=== PATIENT | male | born 1935 | race Caucasian/White ===

== ENCOUNTER 2020-02-28 17:18 | Emergency (ER) | payer MEDICARE, SELFPAY ==
[2020-02-28 17:27] VITALS: BP 147/87; PULSE 101; RESP 18; TEMP 36.2; O2SAT 96; BMI 20.7
[2020-02-28 17:33] VITALS: BP 121/73; PULSE 103; RESP 18; O2SAT 94
--- NOTE | 2020-02-28 17:52 | CTR_ITS ---
PROCEDURE INFORMATION: Exam: CT Abdomen And Pelvis With Contrast Exam date and time: 02/28/2020 6:14 PM Age: 84 years old Clinical indication: Abdominal pain; Localized; Prior surgery; Surgery date: 6+ months; Surgery type: Hip; Patient HX: C/O lower abd pain and constipation; Additional info: Constipation, abdominal pain. TECHNIQUE: Imaging protocol: Computed tomography of the abdomen and pelvis with intravenous contrast. Radiation optimization: All CT scans at this facility use at least one of these dose optimization techniques: automated exposure control; mA and/or kV adjustment per patient size (includes targeted exams where dose is matched to clinical indication); or iterative reconstruction. Contrast material: OMNI 300; Contrast volume: 95 ml; Contrast route: INTRAVENOUS (IV); COMPARISON: CR Hip 2-3v LEFT wwo Pelv* [id number] 01/27/2016 7:31 PM RADIATION DOSE METRICS: Total DLP (mGy-cm): 432.35 FINDINGS: There is some atelectasis within the lung bases. There are degenerative changes of the spine. Patient is status post left hip replacement causing streak artifact within the pelvis. There is no liver mass. There is no intrahepatic biliary dilatation. No gallstones are seen within the gallbladder. The pancreas is unremarkable. The spleen is unremarkable. There is no adrenal mass. There are several small cysts in the upper pole of the left kidney. The largest measuring 11 mm. No renal calculi or hydronephrosis is seen. The aorta is normal in caliber. The IVC is normal in caliber. There is no retroperitoneal adenopathy. There is no mesenteric adenopathy. The stomach is unremarkable. The small bowel loops in the upper abdomen are nondistended with no bowel wall thickening. The colonic structures within the upper abdomen are normal in caliber with no bowel wall thickening. There is a complex cystic area within the mesentery in the right lower quadrant. This does not appear to represent fluid-filled bowel loops. It could represent complex neoplasm. An inflammatory process is not excluded. The. Comparison to old studies would be helpful. Within the pelvis: The appendix is not visualized to advantage. However, there is no CT evidence for acute appendicitis. The bladder is nondistended. There is prostatic enlargement. There is no free fluid within the pelvis. There is no inguinal adenopathy. There is no pelvic adenopathy. The rectosigmoid colon is unremarkable. CT/CT abdomen pelvis w con* [id number] IMPRESSION: 1. Complex cystic area measuring approximately 6.1 cm the within the mesentery in the right lower quadrant. This could represent neoplasm. It could be inflammatory or infectious. Comparison to old studies would be helpful. A study with oral contrast may be helpful. The direct inspection may be warranted. 2. No pathologic adenopathy is seen. COMMENTS: Consistent with the [employer]'s Incidental Findings Committee white paper (J Am Alberto Radiol 2018): Any incidental renal lesion less than 1 cm or classified as too small to characterize, or any incidental cystic renal lesion characterized as simple-appearing, is likely benign. No follow-up imaging is recommended for these lesions per consensus recommendations based on imaging criteria. Radiation Dose CTDIVOL = (mGy): DLP = 432.35 (mGy-cm)
[2020-02-28 18:05] VITALS: BP 121/73; PULSE 100; RESP 16; O2SAT 94
[2020-02-28 18:15] LABS: Basophils % 0.3 %; Eosinophils % 0.1 %; Hematocrit 38.2 % (42.0-52.0); Hemoglobin 12.7 g/dL (11.7-16.6); Lymphocytes # 0.8 10^3/uL (0.8-4.8); Lymphocytes % 5.3 %; Mean Corpuscular HGB Conc 33.2 g/dL (30.0-36.0); Mean Corpuscular Hemoglobin 30.9 pg (28.0-34.0); Mean Corpuscular Volume 92.9 fL (80-94); Mean Platelet Volume 9.5 fL (7.4-10.4); Monocytes # 1.4 10^3/uL (0.2-0.9); Monocytes % 9.6 %; Neutrophils # 12.17 10^3/uL (1.8-7.7); Neutrophils % 84.4 %; Nucleated Red Blood Cells % 0 %; Platelet Count 543 10^3/cmm (130-400); Red Blood Count 4.11 10^6/uL (4.1-5.3); Red Cell Distribution Width 12.4 % (12.1-15.1); White Blood Count 14.4 10^3/uL (4.0-10.0)
--- NOTE | 2020-02-28 18:22 | W.ED.ABDPA2 ---
HPI - Abdominal Pain General: Chief Complaint: Abdominal Pain Stated Complaint: CONSTIPATION Time Seen by Provider: 02/28/20 17:38 Source: patient and family () Mode of arrival: ambulatory Limitations: no limitations History of Present Illness: HPI narrative: The patient is an 84-year-old male with no significant past medical history who presents to the emergency department with constipation of over 2 weeks duration. He also has some lower abdominal pain. Nausea or vomiting. No fever. He may have lost some weight. His convinced him to come to the emergency department for evaluation. MD elicited complaint: abdominal pain Onset (ago): week(s) (2) Pain Consistency: constant Location: Diffuse Severity: moderate Quality: cramping Radiation: none Migration to: no migration Exacerbating factors: nothing Relieving factors: nothing Associated Symptoms: Reports anorexia, change in bowel habits, change in stool character and constipation; Denies belching, bloating, chills, coffee ground emesis, GI cramping, diarrhea, dyspepsia, dysuria, excessive flatus, fever(s), heartburn, hematochezia, hematuria, hematemesis, fecal incontinence, loose stools, melena, nausea, poor appetite, syncope and vomiting Review of Systems General: Reports: 10 or more systems reviewed and unremarkable except in HPI and below Const: Denies: fever(s) or chills Eyes: Denies: change in vision or blurry vision ENMT: Denies: throat pain, enlarged tonsils, odynophagia, hoarseness, mouth pain or swelling of lips/tongue Card: Denies: syncope Resp: Denies: dyspnea, productive cough or non-productive cough GI: Reports: constipation, change in bowel habits and change in stool character; Denies: nausea, vomiting, hematemesis, coffee ground emesis, heartburn, diarrhea, bloating, GI cramping, belching, excessive flatus, fecal incontinence, hematochezia or melena : Denies: dysuria or hematuria Musc: Denies: neck pain, back pain or extremity swelling Skin/Breast: Denies: rash, pruritus or erythema Neuro: Denies: headache(s), numbness in extremities or weakness in extremities Endo: Denies: polyuria, polydipsia or tired all the time Physical Exam Const: COMMON NORMALS: no acute distress, average body habitus, patient oriented x3, no limitations, healthy appearing, alert and well nourished Neck/C-Spine: COMMON NORMALS: no meningeal signs and no JVD Resp: COMMON NORMALS: normal respiratory effort, No retractions, No use of accessory muscles, clear to auscultation bilaterally and percussion normal AUSCULTATION: clear to auscultation bilaterally PERCUSSION: percussion normal Cardio: COMMON NORMALS: no JVD, regular rate, regular rhythm, S1 normal heart sound present, S2 normal heart sound present, No gallops present (Cardio), No clicks present (Cardio), No murmurs present (Cardio), No rub (Cardio) and Peripheral pulses 2+ throughout RATE: regular rate RHYTHM: regular rhythm HEART SOUNDS: S1 normal heart sound present and S2 normal heart sound present PERIPHERAL PULSES: Peripheral pulses 2+ throughout GI: COMMON NORMALS: Normal to inspection, nondistended, normoactive bowel sounds present, Soft to palpation, No hepatosplenomegaly present, no masses and no bruits PALPATION: Yes Soft to palpation, Yes Tenderness to palpation present (GI) Details: RLQ and other (suprapubic), No Guarding due to palpation present (GI), No Rigid due to palpation and Yes No hepatosplenomegaly present Extremity: COMMON NORMALS: normal to inspection, full ROM, capillary refill normal, no calf tenderness and no pedal edema Neuro: COMMON NORMALS: patient oriented x3 SENSORIUM/ORIENTATION: Yes alert MENINGEAL SIGNS: Yes no meningeal signs Skin: COMMON NORMALS: no rashes or lesions noted, no wounds, turgor normal, no jaundice, no petechiae and no mottling GENERAL SKIN EXAM: no rashes or lesions noted and turgor normal Course Reevaluation(s): Reevaluation #1: Discussed his lab and imaging findings with him. Discussed that he has a right lower quadrant mesenteric mass. I explained that the differential diagnoses include an inflammatory or infectious mass versus a malignant mass. I am concerned that this may be more malignant since symptoms have been going on for several weeks. However because of his inflammatory markers being high I will send him home with a prescription for antibiotics. He will need to be seen by surgeon for possible biopsy and further evaluation. That was the patient's preference as he did not want to be admitted to the hospital. He is in no acute distress, vital signs are all normal. I do not see any reason for hospital admission today. He voiced understanding and is in agreement with the plan Time: 20:07 Vital Signs: Vital signs: Vital Signs Temperature 97.9 F 02/28/20 21:02 Pulse Rate 93 02/28/20 21:02 Respiratory Rate 16 02/28/20 21:02 Blood Pressure 123/74 02/28/20 21:02 Pulse Oximetry 95 02/28/20 21:02 MDM - Abdominal Pain MDM Narrative: Medical decision making narrative: 84-year-old gentleman who came in with lower abdominal pain and constipation. Evaluation in the emergency department including imaging of his abdomen and pelvis by CT scan does not reveal any significant obstruction or constipation, however I reveals a right lower quadrant mass in the mesentery. I suspect this mass is likely malignant. The patient is stable and has normal vital signs and is discharged home to follow-up with his surgeon for further evaluation and management including a biopsy of the mass. Medical Records: Attestation: I reviewed the patient's medical records. Lab Data: Attestation: I reviewed the patient's lab results. Labs: Lab Results 02/28/20 02/28/20 02/28/20 Range/Units 18:00 18:00 18:12 WBC 14.4 H (4.0-10.0) 10^3/ uL RBC 4.11 (4.1-5.3) 10^6/u L Hgb 12.7 (11.7-16.6) g/dL Hct 38.2 L (42.0-52.0) % MCV 92.9 (80-94) fL MCH 30.9 (28.0-34.0) pg MCHC 33.2 (30.0-36.0) g/dL RDW 12.4 (12.1-15.1) % Plt Count 543 H (130-400) 10^3/c mm MPV 9.5 (7.4-10.4) fL Neut % (Auto) 84.4 % Lymph % (Auto) 5.3 % [place] % (Auto) 9.6 % Eos % (Auto) 0.1 % Baso % (Auto) 0.3 % Neut # (Auto) 12.17 H (1.8-7.7) 10^3/u L Lymph # (Auto) 0.8 (0.8-4.8) 10^3/u L [place] # (Auto) 1.4 H (0.2-0.9) 10^3/u L Eos # (Auto) 0.0 (0.0-0.8) 10^3/u L Baso # (Auto) 0.0 (0.0-0.1) 10^3/u L Nucleated RBC % (a uto) 0 % Nucleated RBCs # 0.0 /100WBC Sodium 134 L (136-145) mmol/L Potassium 4.1 (3.5-5.1) mmol/L Chloride 97 L (98-107) mmol/L Carbon Dioxide 24 (22-29) mmol/L Anion Gap 17.1 (5-19) BUN 13 (8-23) mg/dL Creatinine 0.8 (0.7-1.2) mg/dL GFR Calculation Not Reportable Glucose 132 H (65-115) mg/dL Calculated Osmolal ity 280 L (285-295) mOsm/k g Calcium 8.9 (8.5-10.5) mg/dL Magnesium 1.9 (1.7-2.3) mg/dL Total Bilirubin 0.4 (0.15-1.2) mg/dL AST 25 (0-40) U/L ALT 14 (0-41) U/L Alkaline Phosphata se 93 (40-130) IU/L C-Reactive Protein 186.9 H (0.0-4.9) mg/L Total Protein 7.8 (6.6-8.7) g/dL Albumin 3.1 L (3.5-5.2) g/dL Globulin 4.7 H (1.3-4.6) g/dL Lipase 18 (13-60) U/L TSH 2.48 (0.27-4.20) uIU/ mL Urine Color Dark yellow (Yellow) Urine Appearance Hazy A (CLEAR) Urine pH 5 (5-7) Ur Specific Gravit y 1.025 (1.005-1.030) Urine Protein Trace (Negative) Urine Glucose (UA) Norm (Normal) Urine Ketones Negative (Negative) Urine Blood 2+ H (Negative) Urine Nitrate Negative (Negative) Urine Bilirubin 1+ H (Negative) Urine Urobilinogen Norm (Negative) mg/dL Ur Leukocyte Kimberlyn ase Negative (Negative) Urine RBC 15-25 H (0-2) /hpf Urine WBC 0-4 H (0-5) /hpf Ur Squamous Epith Cells Rare (0-5) /hpf Amorphous Sediment Not Reportable Urine Bacteria 2+ H (NONE) /hpf Urine Mucus 4+ /hpf Imaging Data ^: CT Abd/Pel: Radiologist's impression: [address] [address] [address] Scan Report Signed Patient: Ernie Heard #: [id number] : 5Acct#:[id number] Age/Sex: 84 / MADM Date: 02/28/20 Loc: ERRoom/Bed: Attending Dr: Ordering Provider/Ordering MD: Kelly Hightower MD, [facility] [place] Date of Service: 02/28/20 Procedure(s): CT abdomen pelvis w con* [id number] Accession Number(s): [id number] Report Number: [id number] PROCEDURE INFORMATION: Exam: CT Abdomen And Pelvis With Contrast Exam date and time: 02/28/2020 6:14 PM Age: 84 years old Clinical indication: Abdominal pain; Localized; Prior surgery; Surgery date: 6+ months; Surgery type: Hip; Patient HX: C/O lower abd pain and constipation; Additional info: Constipation, abdominal pain. TECHNIQUE: Imaging protocol: Computed tomography of the abdomen and pelvis with intravenous contrast. Radiation optimization: All CT scans at this facility use at least one of these dose optimization techniques: automated exposure control; mA and/or kV adjustment per patient size (includes targeted exams where dose is matched to clinical indication); or iterative reconstruction. Contrast material: OMNI 300; Contrast volume: 95 ml; Contrast route: INTRAVENOUS (IV); COMPARISON: CR Hip 2-3v LEFT wwo Pelv* [id number] 01/27/2016 7:31 PM RADIATION DOSE METRICS: Total DLP (mGy-cm): 432.35 FINDINGS: There is some atelectasis within the lung bases. There are degenerative changes of the spine. Patient is status post left hip replacement causing streak artifact within the pelvis. There is no liver mass. There is no intrahepatic biliary dilatation. No gallstones are seen within the gallbladder. The pancreas is unremarkable. The spleen is unremarkable. There is no adrenal mass. There are several small cysts in the upper pole of the left kidney. The largest measuring 11 mm. No renal calculi or hydronephrosis is seen. The aorta is normal in caliber. The IVC is normal in caliber. There is no retroperitoneal adenopathy. There is no mesenteric adenopathy. The stomach is unremarkable. The small bowel loops in the upper abdomen are nondistended with no bowel wall thickening. The colonic structures within the upper abdomen are normal in caliber with no bowel wall thickening. There is a complex cystic area within the mesentery in the right lower quadrant. This does not appear to represent fluid-filled bowel loops. It could represent complex neoplasm. An inflammatory process is not excluded. The. Comparison to old studies would be helpful. Within the pelvis: The appendix is not visualized to advantage. However, there is no CT evidence for acute appendicitis. The bladder is nondistended. There is prostatic enlargement. There is no free fluid within the pelvis. There is no inguinal adenopathy. There is no pelvic adenopathy. The rectosigmoid colon is unremarkable. CT/CT abdomen pelvis w con* [id number] IMPRESSION: 1. Complex cystic area measuring approximately 6.1 cm the within the mesentery in the right lower quadrant. This could represent neoplasm. It could be inflammatory or infectious. Comparison to old studies would be helpful. A study with oral contrast may be helpful. The direct inspection may be warranted. 2. No pathologic adenopathy is seen. COMMENTS: Consistent with the [employer]'s Incidental Findings Committee white paper (J Am Alberto Radiol 2018): Any incidental renal lesion less than 1 cm or classified as too small to characterize, or any incidental cystic renal lesion characterized as simple-appearing, is likely benign. No follow-up imaging is recommended for these lesions per consensus recommendations based on imaging criteria. Radiation Dose CTDIVOL = (mGy): DLP = 432.35 (mGy-cm) Dictated By:Enrique Chavez MD Signed By:Enrique Chavezigned Date/Time:02/28/201932 DD/ 31 Discharge Plan Discharge Patient Disposition: Home Clinical Impression: Mesenteric mass Condition: Stable Prescriptions: New Augmentin 875-125 mg tablet 1 tab PO BID Qty: 14 RF: 0 Continued Vitamin C 1 tab PO DAILY@0900 RF: 0 Vitamin D3 1 tab PO DAILY@0900 RF: 0 zinc 1 tab PO DAILY@0900 RF: 0 Discharge Orders: Discharge ED (Routine); Ordered 02/28/20 Ordered By: Kelly Hightower Referrals: Bouchra Valladares MD [Primary Care Provider] - 1-3 days Discharge Diet: Usual diet Discharge Activity: Resume usual activity Activity Restrictions/Additional Instructions: Return for any new or worsening symptoms. Follow-up with your primary care provider within 3 days. You will be contacted by the case management office to schedule an appointment with the surgeon as soon as possible. Take the antibiotic as prescribed in case the mass is infectious. Coding Level of Care Code ED Inspector Eyeglass for Joey Fwandrés Exam Detailed
[2020-02-28 18:29] LABS: Add Urine Microscopic? YES; Bilirubin Urine 1+ (Negative); Blood Urine 2+ (Negative); Glucose Urine UA Norm (Normal); Ketones Urine Negative (Negative); Leukocyte Esterase Urine Negative (Negative); Nitrate Urine Negative (Negative); Protein Urine Trace (Negative); Specific Gravity, Urine 1.025 (1.005-1.030); Urine Appearance Hazy (CLEAR); Urine Color Dark Yellow (Yellow); Urobilinogen Urine Norm (Negative); pH Urine 5 (5-7)
[2020-02-28 18:31] LABS: RBC Urine 15-25 /hpf (0-2); Squamous Epithelial Cell Urine RARE /hpf (0-5); WBC Urine 0-4 /hpf (0-5)
[2020-02-28 18:32] LABS: Add Urine Culture? Yes; Bacteria Urine 2+ /hpf; Mucus Urine 4+ /hpf
[2020-02-28 18:45] LABS: Alanine Aminotransferase 14 U/L (0-41); Albumin Level 3.1 g/dL (3.5-5.2); Alkaline Phosphatase 93 IU/L (40-130); Anion Gap 17.1 (5-19); Aspartate Amino Transferase 25 U/L (0-40); Blood Urea Nitrogen 13 mg/dL (8-23); C Reactive Protein 186.9 mg/L (0.0-4.9); Calcium 8.9 mg/dL (8.5-10.5); Carbon Dioxide 24 mmol/L (22-29); Chloride 97 mmol/L (98-107); Globulin 4.7 g/dL (1.3-4.6); Glucose 132 mg/dL (65-115); Lipase 18 U/L (13-60); Magnesium 1.9 mg/dL (1.7-2.3); Osmolality Calculated 280 mOsm/kg (285-295); Potassium 4.1 mmol/L (3.5-5.1); Sodium 134 mmol/L (136-145); Thyroid Stimulating Hormone 2.48 uIU/mL (0.27-4.20); Total Bilirubin 0.4 mg/dL (0.15-1.2); Total Protein 7.8 g/dL (6.6-8.7)
[2020-02-28] MEDS: iohexol 300 mg/mL 100 mL Btl IV (19:11)
[2020-02-28 20:05] VITALS: BP 123/74; PULSE 102; RESP 16; O2SAT 95
[2020-02-28 21:02] VITALS: BP 123/74; PULSE 93; RESP 16; TEMP 36.6; O2SAT 95
--- NOTE | 2020-02-29 09:30 | DCPLANNER ---
legal manager had message to schedule a follow up appointment for patient with general surgery. legal manager e mailed Albino at [facility] General Surgery, patients information. Patients information will be printed and reviewed. Clinic will call patient with appointment information.
--- NOTE | 2020-03-03 11:08 | DCPLANNER ---
Patient has a follow up appointment scheduled for Saturday, March 21, 2020 at 10:[address] Desai. Clinic will call patient with appointment information.
--- NOTE | 2020-03-30 15:20 | DCPLANNER ---
Patient had a follow up appointment scheduled with general surgery - patient did attend appointment.
== END 2020-02-28 21:05 | disposition home or self-care (01) ==
PROVIDERS: Emergency Provider Family Medicine; PCP Family Medicine
DX: K63.89 Other specified diseases of intestine (principal)
CPT/HCPCS: 12345; 74177; 80053; 81001; 83690; 83735; 84443; 85025; 86140; 87086; 99283; Q9967

== ENCOUNTER 2020-03-07 12:19 | Outpatient (CLI) | payer MEDICARE, SELFPAY ==
[2020-03-07] MEDS: iohexol 300 mg/mL 50 mL Btl PO (13:28)
[2020-03-07] MEDS: iohexol 300 mg/mL 100 mL Btl IV (14:14)
--- NOTE | 2020-03-07 14:30 | CT_ITS ---
WS: [id number] CT ABDOMEN AND PELVIS WITH CONTRAST HISTORY: Mesenteric mass TECHNIQUE: Imaging performed of the abdomen and pelvis with IV contrast. Single phase imaging of the abdomen. Coronal and sagittal reformats are submitted. All CT scans at [facility] use at least one of these dose optimization techniques: automated exposure control; mA and/or kV adjustment per patient size (includes targeted exams where dose is matched to clinical indication); or iterativ e reconstruction. IV CONTRAST: Omnipaque 300; 95 mL IV. Oral contrast: Yes. DLP: 390.1 mGy.cm COMPARISON: 02/28/2020 Lower thorax: Emphysematous changes at the lung bases. Heart is normal size. Small hiatal hernia. Liver/biliary system: Hypodensity in the LEFT lobe of the liver is too small to characterize and may be a cyst. No bile duct dilatation. Gallbladder: Normal. No gallstones or wall thickening. No pericholecystic fluid. Pancreas: Normal. Spleen: Normal. Adrenal glands: Minimal thickening of the adrenal glands but no mass. Right kidney: Normal. Left kidney: Hypodensities involving the cortex. Probably representing cysts. No obstruction. Aorta: Moderate atherosclerosis and ectasia of the ureter. Iliac arteries are tortuous. Mildly prominent IVC is also tortuous. Lymphadenopathy: Soft tissue mass with cystic and solid components and peripheral enhancement as desc ribed on the prior study within the RIGHT abdomen, just anterior to the iliac artery and vein. No def inite enhancement. There is increased soft tissue within the cecal and ascending colon. This complex cystic area is inseparable from the hepatic flexure. Free fluid: None. GI tract: No GI tract obstruction. Increased soft tissue density in the cecum and ascending colon. Po or contrast opacification of the colon. Again noted is a mesenteric mass in the RIGHT abdomen insepar able from the colon. Abdominal wall: Unremarkable abdominal wall. No hernia. Pelvis: Well-distended urinary bladder. No free fluid identified in the pelvis. Bones: Prior LEFT hip arthroplasty. Advanced degenerative changes involving the disc the lumbar spine . CT/CT abdomen pelvis w con* [id number] IMPRESSION: 1. Again noted is the abnormal exophytic cystic and solid mass inseparable fro m the hepatic flexure centered in RIGHT abdomen. Similar to the prior examinati on. No oral contrast is present within this location. Neoplasm or adenopathy ar e within the differential. Recommend surgical evaluation and possible colonosco py. There is increased soft tissue and also within the cecum for which neoplasm is not excluded. 2. No free air or ascites.
== END 2020-03-07 12:20 | disposition home or self-care (01) ==
PROVIDERS: PCP Family Medicine; Visit Provider Family Medicine
DX: K63.89 Other specified diseases of intestine (principal)
CPT/HCPCS: 74177

== ENCOUNTER → 2020-03-15 16:01 | Outpatient (BNVA) | payer MEDICARE, SELFPAY | PROVIDERS: PCP Family Medicine; Visit Provider Surgery | DX: Z20.828 Contact with and (suspected) exposure to other viral communicable diseases (principal); D49.0 Neoplasm of unspecified behavior of digestive system | CPT/HCPCS: 87635 ==

== ENCOUNTER 2020-03-22 10:21 | Day surgery (SDC) | payer MEDICARE, SELFPAY ==
[2020-03-18 16:46] VITALS: BMI 21.1
[2020-03-22 10:49] VITALS: BP 147/79; PULSE 110; RESP 16; TEMP 36.7; O2SAT 95
[2020-03-22] MEDS: sodium chloride 0.9% 1,000 ML 30 ML IV (10:59)
--- NOTE | 2020-03-22 11:17 | W.PM.OPSUD ---
Surgery/Procedure H&P Update DATE OF PROCEDURE: March 22, 2020 DATE H&P PERFORMED: 03/15/20 H&P UPDATE INFORMATION: I have reviewed H&P completed within last 30 days, I have examined patient prior to procedure and No changes to prior documentation PREOP DIAGNOSIS: diagnostic PLANNED PROCEDURE: Operation Date: 03/22/20 11:30 Proposed Procedures p Colonoscopy 12546 d49.0(Not Applicable) - Govind Desai MD
--- NOTE | 2020-03-22 12:50 | ANES.PREANE2 ---
Pre-Anesthetic Assessment Pre-Anesthetic Assessment: Height/Weight: Height 1.78 m Weight 66.678 kg Temp Pulse Resp BP Pulse Ox 98.1 F 110 H 16 147/79 95 03/22/20 10:49 03/22/20 10:49 03/22/20 10:49 03/22/20 10:49 03/22/20 10:49 Preop Diagnosis: diagnostic Proposed Procedure: Operation Date: 03/22/20 11:30 Proposed Procedures p Colonoscopy 97001 d49.0(Not Applicable) - Govind Desai MD Was Beta Nikkie taken within 24 hours: N/A Last intake: Intake Last Liquid Date 03/21/20 Last Liquid Time 23:00 Last Solid Date 03/20/20 Last Solid Time 18:00 Social: Social History: No alcohol and No tobacco Exam: Pre-Anes Outpt Exam: alert, oriented x 3, clear to auscultation bilaterally and regular rate & rhythm Airway: Submandibular: WNL Cervical ROM: WNL MP: 2 Dentition: Partials History/ROS: No significant history except as noted GI: Comments: Colon mass Anesthetic Plan: ASA status: 2 Anesthesia: MAC Meds/Allergies Current Medications: Current Medications Generic Name Dose Route Start Last Admin Trade Name Freq PRN Reason Stop Dose Admin Sodium Chloride 1,000 mls @ 30 ml s/hr 03/22/20 10:45 03/22/20 10:59 Sodium Chloride 0.9% IV 03/23/20 10:44 30 mls/hr .Q24H DOROTHY Administration PFSH Anesthesia PFSH: Surgical History History of hip surgery History of knee surgery Family History Sister Cancer Denies family history of Diabetes CAD (coronary artery disease) Anesthesia complication Bleeding disorder Hypertension Social History Smoking and tobacco status: never smoked Alcohol intake: never Household members: spouse Marital status: Current occupational status: retired History of recent travel: No Data Anesthesia Cardiac Studies: No Data to Display
[2020-03-22 13:32] VITALS: BP 114/73; PULSE 82; RESP 14; TEMP 36.6; O2SAT 97
--- NOTE | 2020-03-22 13:36 | ANE.PACU2 ---
Inpatient post-anesthesia follow up: Airway intact: Yes Vital signs: Temperature 98.1 F Pulse Rate 110 Respiratory Rate 16 Blood Pressure 147/79 Pulse Oximetry 95 Oxygen Delivery Me thod Room Air Oxygen Flow Rate Fraction of Inspir ed Oxygen Hydration adequate: Yes Nausea and vomiting: No Mental status: Baseline
[2020-03-22 13:47] VITALS: BP 128/68; PULSE 80; RESP 18; TEMP 36.7; O2SAT 96
--- NOTE | 2020-03-22 13:54 | PTH.FRZRPT ---
Frozen Section Notes Specimen(s): Hepatic flexure mass Gross: The specimen is submitted for frozen section diagnoses labeled with the patient's name and MRN number and additionally labeled, hepatic flexure mass and consists of muniz-white fragments measuring 0.7 x 0.3 x 0.2 cm. The specimen is equally divided and submitted for frozen section diagnoses in cassette FS A1. Preliminary Impression: Colon, hepatic flexure mass , FSA 1: ?Chronic active colitis. ?Lymphoid follicle identified, sent for flow cytometry to rule out lymphoma. ?No overt carcinoma identified. - Specimen Information Pathologist: Pau Sharp Date: 03/22/20 Specimen reported at what time: 13:36 - Clinician Specimen collection time: 13:27 Clinician reported to: Govind Desai
--- NOTE | 2020-03-22 15:32 | ANE.PACU2 ---
Inpatient post-anesthesia follow up: Airway intact: Yes Vital signs: Temperature 98.1 F Pulse Rate 80 Respiratory Rate 18 Blood Pressure 128/68 Pulse Oximetry 96 Oxygen Delivery Me thod Room Air Oxygen Flow Rate Fraction of Inspir ed Oxygen Hydration adequate: Yes Nausea and vomiting: No Pain level: 1 Mental status: Baseline
[2020-03-25 13:52] LABS: Miscellaneous Test See Scanned Lab Rpt
== END 2020-03-22 14:26 | disposition home or self-care (01) ==
PROVIDERS: PCP Family Medicine; Visit Provider Surgery
PROC: 0DJD8ZZ Inspection of Lower Intestinal Tract, Via Natural or Artificial Opening Endoscopic (ICD-10-PCS; CPT 45378; principal; 2020-03-22 11:30)
DX: K63.89 Other specified diseases of intestine (principal); D12.3 Benign neoplasm of transverse colon; D12.8 Benign neoplasm of rectum; K59.00 Constipation, unspecified; R63.4 Abnormal weight loss; Z68.21 Body mass index [BMI] 21.0-21.9, adult
CPT/HCPCS: 12345; 45380; 45381; 45385; 88184; 88185; 88305; J2704; J7030

== ENCOUNTER → 2024-02-17 13:03 | Outpatient (BNVA) | payer MEDICARE, SELFPAY | PROVIDERS: PCP Family Medicine; Visit Provider Podiatrist Foot & Ankle Surgery | DX: B35.1 Tinea unguium (principal) | CPT/HCPCS: 99203 ==